=== PATIENT | male | born 1980 | race Two or more races ===

== ENCOUNTER 2023-03-20 18:07 | Emergency (ER) | payer OTHER ==
[~2023-03-20] VITALS: Ht 180.3 cm; Wt 96.0 kg
[2023-03-20 20:26] VITALS: BP 114/67; PULSE 87; RESP 16; TEMP 98.1; O2SAT 96
== END 2023-03-20 21:32 | disposition home or self-care (01) ==
LOC: ER 18:07
DX: S16.1XXA Strain of muscle, fascia and tendon at neck level, initial encounter (principal); V43.52XA Car driver injured in collision with other type car in traffic accident, initial encounter; Y93.89 Activity, other specified; Y92.89 Other specified places as the place of occurrence of the external cause; Y99.8 Other external cause status
CPT/HCPCS: 72040

== ENCOUNTER 2025-06-21 13:18 | Emergency (ER) | payer OTHER ==
[~2025-06-21] VITALS: Ht 180.3 cm; Wt 100.0 kg
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
--- NOTE | 2025-06-21 14:04 | DVH ---
CT brain without contrast CLINICAL INDICATION: head injury FINDINGS: The study was performed in a multidetector scanner. This study performed taking axial images from the skull base up to the vertex. Both brain and bone windows are photographed. Dose lowering techniques have been used including automated exposure control and adjustment of mA and/or KV according to patient size. Normal and symmetrical shape and density of brain parenchyma above and below the tentorium is seen. There is no mass, midline shift or hydrocephalus. No intra/extra-axial collections demonstrated. There is no intracranial hemorrhage. The calvarium is intact. IMPRESSION: 1. Normal brain and skull. Computed Tomographic Radiation Dosimetry Report: Total CTDI vol = 60 mGy Total DLP = 1196 mGy-cm All CT scans at this medical facility are performed using dose modulation techniques as appropriate to a performed exam including the following: Automated exposure control was utilized; adjustment of the MA and/or KvP according to patient size; and use of iterative reconstruction technique.
[2025-06-21 14:46] VITALS: BP 123/85; PULSE 115; RESP 15; TEMP 98.1; O2SAT 100
== END 2025-06-21 15:01 | disposition home or self-care (01) ==
LOC: EDBD 13:18 → ER 13:18
DX: S06.9X1A Unspecified intracranial injury with loss of consciousness of 30 minutes or less, initial encounter (principal); F19.90 Other psychoactive substance use, unspecified, uncomplicated; X58.XXXA Exposure to other specified factors, initial encounter; Y93.89 Activity, other specified; Y92.89 Other specified places as the place of occurrence of the external cause; Y99.8 Other external cause status
CPT/HCPCS: 70450